=== PATIENT | female | born 1970 | race Two or more races ===

== ENCOUNTER 2018-03-21 10:44 | Inpatient (IN) | payer OTHER ==
[~2018-03-21] VITALS: Ht 165.1 cm; Wt 76.2 kg
== END 2018-04-04 10:03 | disposition home or self-care (01) | DRG 743 ==
LOC: O/R 04-02 05:48 → OB/GYN 04-02 05:48 → SURH 04-02 07:00 → OB/GYN 04-02 11:04
PROVIDERS: Obstetrics & Gynecology
PROC: 0UT70ZZ Resection of Bilateral Fallopian Tubes, Open Approach (ICD-10-PCS; 2018-04-02)
PROC: 0UT20ZZ Resection of Bilateral Ovaries, Open Approach (ICD-10-PCS; 2018-04-02)
PROC: 0DNW0ZZ Release Peritoneum, Open Approach (ICD-10-PCS; 2018-04-02)
PROC: 0UT90ZL Resection of Uterus, Supracervical, Open Approach (ICD-10-PCS; principal; 2018-04-02 07:00)
DX: D25.1 Intramural leiomyoma of uterus (principal); D25.0 Submucous leiomyoma of uterus; N80.0 Endometriosis of uterus; N84.0 Polyp of corpus uteri

== ENCOUNTER → 2020-10-21 | Outpatient (CLI) | payer OTHER | END | disposition home or self-care (01) | LOC: MAMO-SONO 10:15 | PROVIDERS: ATTEND Obstetrics & Gynecology | DX: R92.0 Mammographic microcalcification found on diagnostic imaging of breast (principal); N60.11 Diffuse cystic mastopathy of right breast; Z12.31 Encounter for screening mammogram for malignant neoplasm of breast; N64.59 Other signs and symptoms in breast; N60.01 Solitary cyst of right breast ==

== ENCOUNTER 2022-04-24 13:19 | Outpatient (CLI) | payer OTHER | END 2022-04-24 13:35 | disposition home or self-care (01) | LOC: MAMO-SONO 13:19 | PROVIDERS: ATTEND Obstetrics & Gynecology | DX: Z12.31 Encounter for screening mammogram for malignant neoplasm of breast (principal); N60.11 Diffuse cystic mastopathy of right breast ==